=== PATIENT | female | born 1950 | race Caucasian/White ===

== ENCOUNTER 2016-12-07 07:59 | Day surgery (SDC) | payer MEDICARE, BC ==
[2016-12-04 18:06] LABS: HEMATOCRIT 41.3 % (36.0-48.0); HEMOGLOBIN 13.4 g/dL (12.0-16.0)
[2016-12-04 18:23] LABS: A/G RATIO 1.2 (0.7-1.9); ALBUMIN 3.8 G/DL (3.5-5.0); ALKALINE PHOSPHATASE 89 U/L (45-117); BUN (BLOOD UREA NITROGEN) 18 MG/DL (6-23); CALCIUM, SERUM 8.8 MG/DL (8.5-10.4); CHLORIDE, SERUM 104 MMOL/L (96-112); CO2 (CARBON DIOXIDE) 29 MMOL/L (24-34); CREATININE 0.85 MG/DL (0.55-1.02); GFR AFRICAN AMERICAN 83 ML/MIN (>=60); GFR NON AFRICAN AMERICAN 72 ML/MIN (>=60); GLOBULIN 3.2 G/DL (2.5-4.1); GLUCOSE, SERUM 101 MG/DL (60-99); POTASSIUM, SERUM 3.8 MMOL/L (3.5-5.3); SGOT(AST) 22 U/L (5-40); SGPT(ALT) 24 U/L (5-65); SODIUM, SERUM 141 MMOL/L (135-148); TOTAL BILIRUBIN 0.7 MG/DL (0-1.2)
--- NOTE | ~2016-12-07 | OP ---
Record Of Operation [facility] [address] [place]. [address] NAME: ADRYAN ZHU : 52 STATUS : REG [facility] [place] PAT#: [id number] AGE: 66 ADM/REG DATE : 12/07/16 MR#: [id number] REPORT SERV DATE: 12/07/16 DICTATED BY: EDI MENA DATE: 12/07/16 REPORT STATUS : Draft TRANSCRIBED BY: MODL DATE: 12/07/16 DATE OF PROCEDURE: 12/07/2016 PREOPERATIVE DIAGNOSIS: Chronic cholecystitis with cholelithiasis. POSTOPERATIVE DIAGNOSIS: Chronic cholecystitis with cholelithiasis. PROCEDURE: Laparoscopic cholecystectomy (three-site). DESCRIPTION OF OPERATIVE PROCEDURE: The patient was brought to the operating suite, placed in supine position, underwent satisfactory general endotracheal anesthesia without incident. The skin of the abdomen was scrubbed, prepped, and draped in usual sterile fashion. 0.5% Marcaine with epinephrine was utilized as supplemental local anesthesia at all intended trocar sites. Initially, an infraumbilical incision was performed dissecting through the skin and subcutaneous tissue to the umbilical fascia. This was grasped with a Margarito clamp and elevated and a disposable Veress insufflation needle was inserted through the umbilical fascia into the peritoneal cavity. Intraperitoneal tip location ascertained using the saline hanging drop method. CO2 insufflated for pressures of 15 mmHg throughout the case. After adequate insufflation pressure achieved, Veress needle was removed, disposable bladed/shielded 11 mm trocar inserted through the umbilical fascia following which a rigid forward-viewing 10 mm laparoscope was inserted. Visualization of the intraabdominal parietes revealed no evidence of injury from initial insufflation or puncture. A cursory examination of pelvis was normal. Attention was turned to the upper abdomen. There were some omental adhesions to the upper midline, I was able to skirt them around to the right upper quadrant and then visualize the abdominal wall in the right upper quadrant. Two additional 5 mm trocars were placed under direct visualization and the fundus and body of the gallbladder grasped and elevated. The periduodenal fibrofatty adhesions as well as the duodenum itself were swept off the infundibulum of the gallbladder and then dissection of triangle of Calot was successful in identifying and skeletonizing the cystic duct, cystic duct and common duct junction, as well as getting the critical view. Both the artery and cystic duct were controlled with multiple applications of the Weck 5 mm polymer clip system and divided. Then using spatula cautery dissection, the peritoneal attachments of the gallbladder and liver were divided, and the gallbladder was removed from the subhepatic space. Next, the camera switched to the 5 mm epigastric port. The gallbladder was grasped by its neck and removed through the umbilical port. It was opened, aspirated free of bile, and multiple stones removed, and then removed in the peritoneal cavity. CO2 was allowed to egress from the peritoneal cavity. Record Of Operation [facility] [address] [place]. [address] NAME: ADRYAN ZHU : 52 STATUS : REG [facility]#: [id number] AGE: 66 ADM/REG DATE : 12/07/16 MR#: [id number] REPORT SERV DATE: 12/07/16 DICTATED BY: EDI MENA DATE: 12/07/16 REPORT STATUS : Draft TRANSCRIBED BY: ANDRE DATE: 12/07/16 The umbilicus was closed with [id number] suture of 0 Vicryl, subcutaneous tissue closure with interrupted 4-0 Vicryl, running subcuticular stitch of 4-0 Vicryl for the skin. Dermabond skin adhesive placed. WR/ANDRE Edi Mena M.D. / [id number] CC: Pratibha Goyal VICKIE
[~2016-12-07 07:59] MED LIST: BUSPAR15 M1 PO; CYANO1000T PO; KLOR-CON 1010 MEQ PO; LEXAPRO20 PO; MAX25 PO; NORCO1 TAB PO; PRILO PO; SYN88 PO; TENEX1 PO; TRAN200 PO; VITAMIN D31000 UNIT PO
== END 2016-12-07 17:23 | disposition home or self-care (01) ==
LOC: SDC 07:59
PROVIDERS: Specialist
PROC: 0FT44ZZ Resection of Gallbladder, Percutaneous Endoscopic Approach (ICD-10-PCS; principal; 2016-12-07 09:00)
DX: K80.10 Calculus of gallbladder with chronic cholecystitis without obstruction (principal); E78.5 Hyperlipidemia, unspecified; I11.9 Hypertensive heart disease without heart failure; M19.90 Unspecified osteoarthritis, unspecified site; E03.9 Hypothyroidism, unspecified; M50.30 Other cervical disc degeneration, unspecified cervical region; M51.36 Other intervertebral disc degeneration, lumbar region; E78.00 Pure hypercholesterolemia, unspecified; F32.9 Major depressive disorder, single episode, unspecified; H91.90 Unspecified hearing loss, unspecified ear; H26.9 Unspecified cataract; Z88.0 Allergy status to penicillin; Z88.1 Allergy status to other antibiotic agents; Z91.012 Allergy to eggs; Z79.899 Other long term (current) drug therapy; Z91.018 Allergy to other foods; Z90.710 Acquired absence of both cervix and uterus; Z90.49 Acquired absence of other specified parts of digestive tract; Z87.448 Personal history of other diseases of urinary system; Z98.1 Arthrodesis status; Z86.69 Personal history of other diseases of the nervous system and sense organs; Z79.891 Long term (current) use of opiate analgesic
CPT/HCPCS: 80053; 85014; 85018; 88304; 93005; A9270-GY; J0360; J0690; J1170; J2250; J2405; J2710; J3010